=== PATIENT | male | born 2000 | race American Indian/Alaskan Native ===

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

== ENCOUNTER 2023-01-06 13:32 | Emergency (ER) | payer MEDICAID ==
[2023-01-06 13:55] VITALS: BP 123/71; PULSE 105
[2023-01-06] MEDS ORDERED: Ondansetron 4 MG/2 ML SDV IVPUSH ONE (14:52)
[2023-01-06] MEDS ORDERED: Sodium Chloride 0.9% 1,000 ML IV ONE (14:52)
[2023-01-06 15:18] LABS: APPEARANCE,URINE CLEAR (CLEAR); BILIRUBIN,URINE NEGATIVE (NEGATIVE); COLOR,URINE YELLOW (YELLOW); GLUCOSE,URINE NEGATIVE (NEGATIVE); KETONES,URINE NEGATIVE (NEGATIVE); LEUKOCYTE ESTERASE,URINE NEGATIVE (NEGATIVE); NITRITE,URINE NEGATIVE (NEGATIVE); OCCULT BLOOD,URINE TRACE-INTACT (NEGATIVE); PROTEIN,URINE TRACE (NEGATIVE); UROBILINOGEN,URINE 0.2 mg/dL (0.2-1.0)
[2023-01-06 15:41] LABS: BACTERIA,URINE FEW /HPF (0-FEW/HPF); EPITHELIAL CELLS,URINE RARE /HPF (NOT SEEN); RBC,URINE 0-5 /HPF (0-5)
[2023-01-06 15:48] LABS: BASOPHILS PERCENT AUTO 0.1 % (0.0-1.0); HEMOGLOBIN 15.4 g/dL (14.0-18.0); LYMPHOCYTES PERCENT AUTO 5.5 % (20.5-50.1); MEAN CORPUSCULAR HEMOGLOBIN 29.7 pg (27.0-34.0); MEAN CORPUSCULAR HGB CONC 34.2 g/dL (33.0-35.0); MEAN CORPUSCULAR VOLUME 86.9 fL (80-100); MONOCYTES PERCENT AUTO 12.7 % (2-8); NEUTROPHILS PERCENT AUTO 81.7 % (42.2-75.2); PLATELET COUNT,PLT 138 10^3/uL (150-450); RED BLOOD CELL COUNT 5.18 10^6/uL (4.6-6.2); WHITE BLOOD CELL COUNT,WBC 18.5 10^3/uL (5.0-10.0)
[2023-01-06 16:08] LABS: ALANINE AMINOTRANSFERASE,ALT 14 U/L (16-63); ALBUMIN 3.5 g/dL (3.4-5.0); ALKALINE PHOSPHATASE 57 U/L (46-116); ANION GAP 13.3 mEq/L (7-13); ASPARTATE AMNIOTRANSFERASE,AST 12 U/L (15-37); BILIRUBIN TOTAL 0.8 mg/dL (0.2-1.0); BLOOD UREA NITROGEN,BUN 7 mg/dL (7-18); BUN/CREATININE RATIO 9.1 (No establ ref range); CALCIUM 8.6 mg/dL (8.5-10.1); CARBON DIOXIDE,CO2 29 mmol/L (21-32); CHLORIDE,CL 98 mmol/L (98-107); CREATININE 0.77 mg/dL (0.70-1.30); ESTIMATED GFR 128 mL/min (>=60); GLUCOSE RANDOM 126 mg/dL (70-99); POTASSIUM,K 3.3 mmol/L (3.5-5.1); PROTEIN TOTAL,TP 6.9 g/dL (6.4-8.2); SODIUM,NA 137 mmol/L (136-145)
== END 2023-01-06 16:04 | disposition left against medical advice (07) ==
LOC: DL.ED 13:32
DX: R11.2 Nausea with vomiting, unspecified (principal); R50.9 Fever, unspecified; R05.9 Cough, unspecified; R06.02 Shortness of breath; F17.210 Nicotine dependence, cigarettes, uncomplicated; Z88.0 Allergy status to penicillin; Z86.16 Personal history of COVID-19; Z20.822 Contact with and (suspected) exposure to COVID-19
CPT/HCPCS: 36415; 80053; 81001; 85025; 86140; 87804; 96361; 96374; 99283; 99284-25; J2405; J7030; U0002

== ENCOUNTER 2023-01-07 12:25 | Emergency (ER) | payer MEDICAID, OTHER ==
[2023-01-07 12:37] VITALS: BP 124/77; PULSE 87
[2023-01-07] MEDS ORDERED: Sodium Chloride 0.9% 10 ML Syringe FLUSH PRN (12:40)
[2023-01-07] MEDS ORDERED: Sodium Chloride 0.9% 1,000 ML IV ONE ×2 (12:42→12:45)
[2023-01-07] MEDS ORDERED: Ketorolac 30 MG/ML SDV IVPUSH ONE (12:42)
[2023-01-07] MEDS ORDERED: Ondansetron 4 MG/2 ML SDV IV ONE (12:42)
[2023-01-07] MEDS ORDERED: Famotidine 20 MG/2 ML SDV IVPUSH ONE (12:42)
[2023-01-07] MEDS ORDERED: diphenhydrAMINE 50 MG/ML SDV IVPUSH ONE (13:04)
[2023-01-07] MEDS ORDERED: cefTRIAXone 2 GM Vial IVPUSH ONE (13:04)
[2023-01-07] MEDS ORDERED: Azithromycin 500 MG in Sodium Chloride 0.9% 250 ML IV ONE (13:05)
[2023-01-07] MEDS ORDERED: Metoclopramide 10 MG/2 ML SDV IVPUSH ONE (13:32)
[2023-01-07] MEDS ORDERED: LORazepam 2 MG/ML SDV IVPUSH ONE (13:33)
[2023-01-07 13:34] LABS: ANION GAP 13.1 mEq/L (7-13)
== END 2023-01-07 14:46 | disposition home or self-care (01) ==
LOC: DL.ED 12:25
DX: J18.9 Pneumonia, unspecified organism (principal); R11.10 Vomiting, unspecified; Z88.0 Allergy status to penicillin; Z86.16 Personal history of COVID-19
CPT/HCPCS: 36415; 71046; 80053; 81001; 82150; 83605; 83690; 85025; 87040; 96365; 96375; 99284; 99284-25; J0456; J0696; J1200; J1885; J2060; J2405; J2765; J3490; J7030; J7050

== ENCOUNTER 2023-01-14 16:04 | Emergency (ER) | payer MEDICAID ==
[2023-01-14] MEDS ORDERED: Sodium Chloride 0.9% 10 ML Syringe FLUSH PRN (17:37)
[2023-01-14] MEDS ORDERED: diphenhydrAMINE 50 MG/ML SDV IVPUSH ONE (17:39)
[2023-01-14] MEDS ORDERED: Iopamidol 755 Mg/ML 100 ML Bottle IVPUSH ONE (17:39)
[2023-01-14] MEDS ORDERED: methylPREDNISolone Sodium Succinate 125 MG/2 ML SDV IVPUSH ONE (17:39)
[2023-01-14] MEDS ORDERED: Ondansetron 4 MG/2 ML SDV IV ONE (17:40)
[2023-01-14] MEDS ORDERED: Morphine 4 MG/ML Syringe IVPUSH ONE (17:40)
[2023-01-14] MEDS ORDERED: Sodium Chloride 0.9% 1,000 ML IV ONE (17:40)
[2023-01-14 17:52] VITALS: BP 126/82; PULSE 106
[2023-01-14 18:24] LABS: HEMATOCRIT 42.6 % (40.0-54.0); HEMOGLOBIN 14.1 g/dL (14.0-18.0); MEAN CORPUSCULAR HEMOGLOBIN 29.1 pg (27.0-34.0); MEAN CORPUSCULAR HGB CONC 33.1 g/dL (33.0-35.0); MEAN CORPUSCULAR VOLUME 87.8 fL (80-100); PLATELET COUNT,PLT 449 10^3/uL (150-450); RED BLOOD CELL COUNT 4.85 10^6/uL (4.6-6.2)
[2023-01-14 18:31] LABS: BASOPHILS PERCENT AUTO 0.2 % (0.0-1.0); EOSINOPHILS PERCENT AUTO 3.1 % (1.0-3.0); LYMPHOCYTES PERCENT AUTO 10.9 % (20.5-50.1); MONOCYTES PERCENT AUTO 12.6 % (2-8); NEUTROPHILS PERCENT AUTO 73.2 % (42.2-75.2)
[2023-01-14 18:40] LABS: BAND PERCENT MAN 3 %; EOSINOPHILS PERCENT MAN 3 % (1-3); LYMPHOCYTES PERCENT MAN 13 % (20-50); MONOCYTES PERCENT MAN 9 % (2-8); SEG NEUTROPHILS PERCENT MAN 72 % (42-75)
[2023-01-14 18:43] LABS: ALANINE AMINOTRANSFERASE,ALT 12 U/L (16-63); ALBUMIN 2.8 g/dL (3.4-5.0); ALKALINE PHOSPHATASE 55 U/L (46-116); ANION GAP 8.4 mEq/L (7-13); BILIRUBIN TOTAL 0.6 mg/dL (0.2-1.0); BLOOD UREA NITROGEN,BUN 4 mg/dL (7-18); BUN/CREATININE RATIO 6.6 (No establ ref range); C-REACTIVE PROTEIN 11.2 mg/dL (0.0-0.9); CALCIUM 8.4 mg/dL (8.5-10.1); CARBON DIOXIDE,CO2 32 mmol/L (21-32); CHLORIDE,CL 102 mmol/L (98-107); CREATININE 0.61 mg/dL (0.70-1.30); EST CRCL DRUG DOSING (CG) 158.14 mL/min; GLUCOSE RANDOM 102 mg/dL (70-99); POTASSIUM,K 3.4 mmol/L (3.5-5.1); PROTEIN TOTAL,TP 6.7 g/dL (6.4-8.2); SODIUM,NA 139 mmol/L (136-145)
[2023-01-14 18:48] LABS: LACTIC ACID 0.5 mmol/L (0.4-2.0)
[2023-01-14 18:53] LABS: A/G RATIO 0.72; ASPARTATE AMNIOTRANSFERASE,AST < 5 U/L (15-37); ESTIMATED GFR 138 mL/min (>=60)
[2023-01-14 19:02] LABS: CORONAVIRUS COVID-19 NAA NEGATIVE (NEGATIVE); INFLUENZA A NAA NEGATIVE (NEGATIVE); INFLUENZA B NAA NEGATIVE (NEGATIVE); RESPIRATORY SYNCYTIAL VIR NAA NEGATIVE (NEGATIVE)
== END 2023-01-14 19:50 ==
LOC: DL.ED 16:04
DX: J18.9 Pneumonia, unspecified organism (principal); J90 Pleural effusion, not elsewhere classified; Z88.0 Allergy status to penicillin; Z86.16 Personal history of COVID-19; Z20.822 Contact with and (suspected) exposure to COVID-19
CPT/HCPCS: 0241U; 36415; 71275; 80053; 83605; 85025; 86140; 87040; 96361; 96374; 96375; 99285; J1200; J2270; J2405; J2930; J7030; Q9967; J3490

== ENCOUNTER 2023-04-24 04:36 | Emergency (ER) | payer MEDICAID ==
[2023-04-24] MEDS ORDERED: Calcium Gluconate 10% 1 GM/10 ML SDV IVPUSH ONE (04:56)
[2023-04-24] MEDS ORDERED: Dextrose 5%-0.9% NaCl 500 ML IV SCH (05:00)
[2023-04-24] MEDS ORDERED: Calcium Gluconate 10% 1 GM/10 ML SDV ONE (05:02)
[2023-04-24 05:57] VITALS: BP 105/78; PULSE 151
[2023-04-24 05:59] LABS: A/G RATIO 1.5; ALANINE AMINOTRANSFERASE,ALT 61 U/L (16-63); ALKALINE PHOSPHATASE 63 U/L (46-116); ANION GAP 20.7 mEq/L (7-13); ASPARTATE AMNIOTRANSFERASE,AST 18 U/L (15-37); BILIRUBIN TOTAL 1.3 mg/dL (0.2-1.0); BLOOD UREA NITROGEN,BUN 52 mg/dL (7-18); BUN/CREATININE RATIO 26.7 (No establ ref range); C-REACTIVE PROTEIN 0.5 mg/dL (0.0-0.9); CALCIUM 10.6 mg/dL (8.5-10.1); CARBON DIOXIDE,CO2 33 mmol/L (21-32); CHLORIDE,CL 80 mmol/L (98-107); CREATININE 1.95 mg/dL (0.70-1.30); ESTIMATED GFR 48 mL/min (>=60); GLUCOSE RANDOM 136 mg/dL (70-99); MAGNESIUM 1.9 mg/dL (1.8-2.4); POTASSIUM,K 3.7 mmol/L (3.5-5.1); PROTEIN TOTAL,TP 8.4 g/dL (6.4-8.2); SODIUM,NA 130 mmol/L (136-145)
[2023-04-24 06:00] LABS: ETHANOL BLOOD MEDICAL < 3 mg/dL (0)
[2023-04-24 06:02] LABS: TSH ULTRASENSITIVE 0.3 uIU/mL (0.36-3.74)
[2023-04-24 06:09] LABS: LACTIC ACID 7.7 mmol/L (0.4-2.0)
[2023-04-24] MEDS ORDERED: Sodium Chloride 0.9% 1,000 ML IV ONE ×2 (06:09→07:35)
[2023-04-24] MEDS ORDERED: Midazolam 1 MG/ML 2 ML SDV IVPUSH ONE (06:11)
[2023-04-24 06:28] LABS: BASOPHILS PERCENT AUTO 0.1 % (0.0-1.0); HEMATOCRIT 49.7 % (40.0-54.0); HEMOGLOBIN 17.7 g/dL (14.0-18.0); LYMPHOCYTES PERCENT AUTO 9.5 % (20.5-50.1); MEAN CORPUSCULAR HEMOGLOBIN 29.3 pg (27.0-34.0); MEAN CORPUSCULAR HGB CONC 35.6 g/dL (33.0-35.0); MEAN CORPUSCULAR VOLUME 82.3 fL (80-100); MONOCYTES PERCENT AUTO 15.4 % (2-8); PLATELET COUNT,PLT 296 10^3/uL (150-450); RED BLOOD CELL COUNT 6.04 10^6/uL (4.6-6.2); WHITE BLOOD CELL COUNT,WBC 22.5 10^3/uL (5.0-10.0)
[2023-04-24] MEDS ORDERED: Midazolam 50 MG in Sodium Chloride 0.9% 40 ML IV SCH (06:30)
[2023-04-24] MEDS ORDERED: Lactated Ringers 1,000 ML IV ONE (07:25)
== END 2023-04-24 08:00 ==
LOC: DL.ED 04:36
DX: F11.23 Opioid dependence with withdrawal (principal); R74.02 Elevation of levels of lactic acid dehydrogenase [LDH]; E87.1 Hypo-osmolality and hyponatremia; R29.0 Tetany; R11.2 Nausea with vomiting, unspecified; D72.829 Elevated white blood cell count, unspecified; N17.9 Acute kidney failure, unspecified; Z88.0 Allergy status to penicillin
CPT/HCPCS: 36415; 80053; 80307; 82550; 83605; 83735; 84100; 84443; 84484; 85025; 86140; 93005; 93010; 96361; 96365; 96375; 96376; 99284; 99285; J0612; J2250; J3490; J7030; J7120

== ENCOUNTER 2023-04-28 23:59 | Emergency (ER) | payer MEDICAID ==
[2023-04-29 00:49] VITALS: BP 125/81; PULSE 80
[2023-04-29] MEDS ORDERED: Lactated Ringers 1,000 ML IV SCH (01:00)
[2023-04-29] MEDS ORDERED: Ondansetron 4 MG/2 ML SDV IVPUSH ONE (01:01)
[2023-04-29] MEDS: Sodium Chloride 0.9% 10 ML Syringe FLUSH PRN ×2 (01:08→01:11)
[2023-04-29 01:36] LABS: A/G RATIO 1.4; ALANINE AMINOTRANSFERASE,ALT 28 U/L (16-63); ALBUMIN 4.2 g/dL (3.4-5.0); ALKALINE PHOSPHATASE 54 U/L (46-116); ANION GAP 13.6 mEq/L (7-13); ASPARTATE AMNIOTRANSFERASE,AST 9 U/L (15-37); BILIRUBIN TOTAL 0.5 mg/dL (0.2-1.0); BLOOD UREA NITROGEN,BUN 11 mg/dL (7-18); BUN/CREATININE RATIO 13.3 (No establ ref range); CALCIUM 9.4 mg/dL (8.5-10.1); CARBON DIOXIDE,CO2 29 mmol/L (21-32); CHLORIDE,CL 98 mmol/L (98-107); CREATININE 0.83 mg/dL (0.70-1.30); EST CRCL DRUG DOSING (CG) 109.37 mL/min; GLUCOSE RANDOM 116 mg/dL (70-99); MAGNESIUM 1.9 mg/dL (1.8-2.4); POTASSIUM,K 3.6 mmol/L (3.5-5.1); PROTEIN TOTAL,TP 7.3 g/dL (6.4-8.2); SODIUM,NA 137 mmol/L (136-145)
[2023-04-29 01:38] LABS: ESTIMATED GFR 125 mL/min (>=60); ETHANOL BLOOD MEDICAL < 3 mg/dL (0)
[2023-04-29 01:39] LABS: LACTIC ACID 1.1 mmol/L (0.4-2.0)
[2023-04-29 01:40] LABS: BASOPHILS PERCENT AUTO 0.4 % (0.0-1.0); EOSINOPHILS PERCENT AUTO 1.3 % (1.0-3.0); HEMATOCRIT 45.1 % (40.0-54.0); HEMOGLOBIN 15.5 g/dL (14.0-18.0); LYMPHOCYTES PERCENT AUTO 7.1 % (20.5-50.1); MEAN CORPUSCULAR HEMOGLOBIN 29.2 pg (27.0-34.0); MEAN CORPUSCULAR HGB CONC 34.4 g/dL (33.0-35.0); MEAN CORPUSCULAR VOLUME 85.1 fL (80-100); MONOCYTES PERCENT AUTO 9.9 % (2-8); NEUTROPHILS PERCENT AUTO 81.3 % (42.2-75.2); PLATELET COUNT,PLT 268 10^3/uL (150-450); WHITE BLOOD CELL COUNT,WBC 13.4 10^3/uL (5.0-10.0)
[2023-04-29] MEDS ORDERED: Take Home: Ondansetron 4 MG Tab.DIS, 5 Tab Pack PO ONE (02:49)
== END 2023-04-29 03:02 | disposition home or self-care (01) ==
LOC: DL.ED 23:59
DX: R11.2 Nausea with vomiting, unspecified (principal); Z88.0 Allergy status to penicillin; Z86.16 Personal history of COVID-19; Z72.0 Tobacco use
CPT/HCPCS: 36415; 80053; 80307; 83605; 83735; 85025; 87040; 96361; 96374; 99283; 99284; J2405; J7120; Q0162; J3490

== ENCOUNTER 2023-08-05 11:42 | Emergency (ER) | payer MEDICAID ==
[2023-08-05] MEDS ORDERED: Ondansetron 4 MG/2 ML SDV IM ONE (12:00)
[2023-08-05] MEDS ORDERED: Ketorolac 30 MG/ML SDV IM ONE (12:01)
[2023-08-05 12:28] VITALS: BP 113/87; PULSE 82
== END 2023-08-05 12:45 | disposition home or self-care (01) ==
LOC: DL.ED 11:42
DX: F11.13 Opioid abuse with withdrawal (principal); Z86.16 Personal history of COVID-19; Z88.0 Allergy status to penicillin
CPT/HCPCS: 96372; 99283; J1885; J2405

== ENCOUNTER 2024-09-21 19:39 | Emergency (ER) | payer MEDICAID, OTHER ==
[2024-09-21 20:05] LABS: BASOPHILS PERCENT AUTO 0.5 % (0.0-1.0); EOSINOPHILS PERCENT AUTO 3.1 % (1.0-3.0); HEMATOCRIT 53.5 % (40.0-54.0); LYMPHOCYTES PERCENT AUTO 14.5 % (20.5-50.1); MEAN CORPUSCULAR HEMOGLOBIN 27.4 pg (27.0-34.0); MEAN CORPUSCULAR HGB CONC 31.8 g/dL (33.0-35.0); MEAN CORPUSCULAR VOLUME 86.2 fL (80-100); MONOCYTES PERCENT AUTO 10.4 % (2-8); NEUTROPHILS PERCENT AUTO 71.5 % (42.2-75.2); PLATELET COUNT,PLT 221 10^3/uL (150-450); RED BLOOD CELL COUNT 6.21 10^6/uL (4.6-6.2); WHITE BLOOD CELL COUNT,WBC 12.5 10^3/uL (5.0-10.0)
[2024-09-21 20:27] LABS: A/G RATIO 1.1; ALANINE AMINOTRANSFERASE,ALT 14 U/L (16-63); ALBUMIN 3.9 g/dL (3.4-5.0); ALKALINE PHOSPHATASE 65 U/L (46-116); ANION GAP 12.9 mEq/L (7-13); ASPARTATE AMNIOTRANSFERASE,AST 5 U/L (15-37); BILIRUBIN TOTAL 0.9 mg/dL (0.2-1.0); BLOOD UREA NITROGEN,BUN 7 mg/dL (7-18); BUN/CREATININE RATIO 7.1 (No establ ref range); CALCIUM 9.3 mg/dL (8.5-10.1); CARBON DIOXIDE,CO2 29 mmol/L (21-32); CHLORIDE,CL 103 mmol/L (98-107); CREATININE 0.99 mg/dL (0.70-1.30); GLUCOSE RANDOM 67 mg/dL (70-99); MAGNESIUM 2.4 mg/dL (1.8-2.4); POTASSIUM,K 2.9 mmol/L (3.5-5.1); PROTEIN TOTAL,TP 7.5 g/dL (6.4-8.2); SODIUM,NA 142 mmol/L (136-145)
[2024-09-21 20:28] LABS: ESTIMATED GFR 108 mL/min (>=60)
[2024-09-21] MEDS: Dexamethasone 4 MG/ML SDV IM ONE (20:34)
[2024-09-21] MEDS: Albuterol/Ipratropium 3.0-0.5 MG/3 ML Neb Soln NEB ONE (20:34)
[2024-09-21] MEDS: Potassium Chloride 10 MEQ Tab.ER PO ONE (20:58)
[2024-09-21 21:08] VITALS: BP 124/76; PULSE 84
== END 2024-09-21 21:07 | disposition home or self-care (01) ==
LOC: DL.ED 19:39
DX: J06.9 Acute upper respiratory infection, unspecified (principal); E87.6 Hypokalemia; F17.210 Nicotine dependence, cigarettes, uncomplicated; Z88.1 Allergy status to other antibiotic agents; Z88.8 Allergy status to other drugs, medicaments and biological substances; Z86.16 Personal history of COVID-19
CPT/HCPCS: 36415; 71046; 80053; 83735; 84484; 85025; 87428-QW; 93005; 93010; 96372; 99284; 99285; A9270-GY; J1100; J7620-GY

== ENCOUNTER 2025-02-28 22:01 | Emergency (ER) | payer MEDICAID ==
[2025-02-28] MEDS: Lidocaine 5% 700 MG Patch TOP ONE (22:38)
[2025-02-28] MEDS: Ketorolac 30 MG/ML SDV IM ONE (22:38)
[2025-02-28] MEDS: Acetaminophen 500 MG Tab PO ONE (22:38)
[2025-02-28 22:48] LABS: BASOPHILS PERCENT AUTO 0.4 % (0.0-1.0); EOSINOPHILS PERCENT AUTO 1.8 % (1.0-3.0); HEMOGLOBIN 17.8 g/dL (14.0-18.0); LYMPHOCYTES PERCENT AUTO 23.6 % (20.5-50.1); MEAN CORPUSCULAR HEMOGLOBIN 27.5 pg (27.0-34.0); MEAN CORPUSCULAR HGB CONC 32.4 g/dL (33.0-35.0); MEAN CORPUSCULAR VOLUME 84.9 fL (80-100); MONOCYTES PERCENT AUTO 15.5 % (2-8); NEUTROPHILS PERCENT AUTO 58.7 % (42.2-75.2); PLATELET COUNT,PLT 221 10^3/uL (150-450); RED BLOOD CELL COUNT 6.48 10^6/uL (4.6-6.2); WHITE BLOOD CELL COUNT,WBC 10.3 10^3/uL (5.0-10.0)
[2025-02-28 23:01] LABS: ANION GAP 12.1 mEq/L (7-13); CALCIUM 9.5 mg/dL (8.5-10.1); EST CRCL DRUG DOSING (CG) 96.6 mL/min; POTASSIUM,K 4.1 mmol/L (3.5-5.1)
[2025-03-01 00:03] VITALS: BP 111/78; PULSE 93
== END 2025-02-28 23:59 | disposition home or self-care (01) ==
LOC: DL.ED 22:01
DX: R07.81 Pleurodynia (principal); Z88.0 Allergy status to penicillin; Z79.899 Other long term (current) drug therapy; Z86.16 Personal history of COVID-19
CPT/HCPCS: 36415; 71046; 80048; 85025; 87428; 93005; 96372; 99283; 99285; A9270; J1885